=== PATIENT | female | born 1985 | race Hispanic/Latino ===

== ENCOUNTER 2018-10-18 16:41 | Emergency (ER) | payer OTHER, MEDICARE ==
[2018-10-18 17:24] LABS: BASOPHILS % (AUTO) 0.4 % (0.0-5.0); EOSINOPHILS % (AUTO) 0.4 % (0.0-8.0); HEMATOCRIT 40.7 % (36-48); LYMPHOCYTES % (AUTO) 14.6 % (21.0-51.0); MEAN CORPUSCULAR HEMOGLOBIN 31.6 pg (27.0-33.0); MEAN CORPUSCULAR HGB CONC 34.1 g/dL (32.0-36.0); MEAN CORPUSCULAR VOLUME 92.7 fL (79-99); MONOCYTES % (AUTO) 8.6 % (3.0-13.0); PLATELET COUNT (AUTO) 243 K/uL (130-400); RED BLOOD CELL COUNT(AUTO) 4.39 MIL/uL (4.00-5.50); RED CELL DISTRIBUTION WIDTH 13.5 % (11.0-15.5); WHITE BLOOD COUNT (AUTO) 12.7 K/uL (4.8-10.8)
[2018-10-18 17:38] LABS: CREATININE 0.8 mg/dL (0.5-1.5); POTASSIUM 3.9 mmol/L (3.5-5.1)
[2018-10-18 17:43] LABS: ALBUMIN 3.4 g/dL (3.5-5.0); BILIRUBIN,DIRECT 0.1 mg/dL (0.0-0.3); BILIRUBIN,TOTAL 0.2 mg/dL (0.2-1.0); TOTAL PROTEIN, SERUM 7.1 g/dL (6.0-8.3)
[2018-10-18 19:04] LABS: APPEARANCE,URINE Clear (CLEAR); BILIRUBIN,URINE Negative (NEGATIVE); COLOR,URINE Yellow (YELLOW); GLUCOSE, URINE (UA) Negative (NEGATIVE); KETONES,URINE Negative (NEGATIVE); LEUKOCYTE ESTERASE ,URINE Negative (NEGATIVE); NITRATE,URINE Negative (NEGATIVE); OCCULT BLOOD,URINE Negative (NEGATIVE); PH,URINE 7.5 (5.0-8.0); PROTEIN,URINE Negative (NEGATIVE); UROBILINOGEN,URINE 0.2 mg/dL (0.2-1.0)
[2018-10-18 19:05] LABS: HCG,QUAL RESULT NEGATIVE (NEGATIVE)
[2018-10-18] MEDS ORDERED: KETOROLAC TROMETHAMINE 30MG/ML ONE (19:11)
[2018-10-18] MEDS ORDERED: SODIUM CHLORIDE 0.9% 50 ML IV ONE (19:18)
[2018-10-18] MEDS ORDERED: CEFTRIAXONE SODIUM 1 GM ONE (19:18)
[2018-10-18] MEDS ORDERED: AZITHROMYCIN 250 MG TABLET PO ONE (19:18)
== END 2018-10-18 19:45 | disposition home or self-care (01) ==
LOC: EDH 16:41
DX: J18.9 Pneumonia, unspecified organism (principal); F41.9 Anxiety disorder, unspecified; Z87.891 Personal history of nicotine dependence; Z88.5 Allergy status to narcotic agent; Z88.8 Allergy status to other drugs, medicaments and biological substances
CPT/HCPCS: 36415; 74176; 80048; 80076; 81003; 81025; 85025; 96374; 96375; 99285; J0696; J1885

== ENCOUNTER 2022-08-28 17:15 | Emergency (ER) | payer OTHER, MEDICARE ==
[~2022-08-28] VITALS: Ht 160 cm; Wt 105.2 kg
[2022-08-28 17:59] LABS: HCG,QUALITATIVE URINE NEGATIVE (NEGATIVE)
[2022-08-28 18:04] LABS: APPEARANCE,URINE CLOUDY (CLEAR); BILIRUBIN,URINE NEGATIVE (NEGATIVE); COLOR,URINE YELLOW (YELLOW); GLUCOSE, URINE (UA) NEGATIVE (NEGATIVE); KETONES,URINE >=80 mg/dL (NEGATIVE); LEUKOCYTE ESTERASE ,URINE NEGATIVE Leu/uL (NEGATIVE); NITRATE,URINE NEGATIVE (NEGATIVE); OCCULT BLOOD,URINE NEGATIVE (NEGATIVE); PROTEIN,URINE 30 mg/dL (NEGATIVE); UROBILINOGEN,URINE 0.2 mg/dL (0.2-1.0)
[2022-08-28 18:33] LABS: MUCUS,URINE MANY LPF (None Seen); SQUAMOUS EPITHELIAL CELL,UR MOD /HPF (0-2); WBC,URINE 0-1 /HPF (0-1)
[2022-08-28] MEDS ORDERED: KETOROLAC 15MG/ML VIAL (15MG/ML) ONE (21:05)
[2022-08-28] MEDS ORDERED: METH4TAB3 PO (21:25)
[2022-08-28] MEDS ORDERED: SOLU-MEDROL 125MG VIAL IM ONE (21:30)
[2022-08-28] MEDS ORDERED: KETOROLAC 15MG/ML VIAL (15MG/ML) IM ONE (21:30)
[2022-08-28 22:24] VITALS: BP 132/66
== END 2022-08-28 22:27 | disposition home or self-care (01) ==
LOC: EDH 17:15
DX: S39.012A Strain of muscle, fascia and tendon of lower back, initial encounter (principal); S76.012A Strain of muscle, fascia and tendon of left hip, initial encounter; S00.12XA Contusion of left eyelid and periocular area, initial encounter; F31.9 Bipolar disorder, unspecified; F41.9 Anxiety disorder, unspecified; Z88.5 Allergy status to narcotic agent; Z88.8 Allergy status to other drugs, medicaments and biological substances; Y04.2XXA Assault by strike against or bumped into by another person, initial encounter; Y93.89 Activity, other specified; Y92.89 Other specified places as the place of occurrence of the external cause; Y99.8 Other external cause status
CPT/HCPCS: 99285; 70486; 81001; 81025; 72100; 72190; 96372 ×2; J2930; J1885

== ENCOUNTER 2024-05-10 20:07 | Emergency (ER) | payer OTHER, MEDICARE ==
[~2024-05-10] VITALS: Ht 160 cm; Wt 102.1 kg
[~2024-05-10 20:07] MED LIST: METH4TAB3 PO
--- NOTE | 2024-05-10 20:13 | NUR ---
UA CUP PROVIDED
[2024-05-10 20:55] LABS: BASOPHILS # (AUTO) 0.08 K/uL (0.00-0.20); BASOPHILS % (AUTO) 0.7 % (0.0-5.0); EOSINOPHILS # (AUTO) 0.01 K/uL (0.00-0.70); EOSINOPHILS % (AUTO) 0.1 % (0.0-8.0); HEMATOCRIT 40.6 % (36-48); IMMATURE GRANULOCYTE ABSOLUTE 0.03 K/uL (0-1); LYMPHOCYTES # (AUTO) 1.5 K/uL (1.0-4.8); LYMPHOCYTES % (AUTO) 13.5 % (21.0-51.0); MEAN CORPUSCULAR HEMOGLOBIN 31.1 pg (27.0-33.0); MEAN CORPUSCULAR VOLUME 94.2 fL (79-99); MONOCYTES # (AUTO) 1.1 K/uL (0.1-1.0); MONOCYTES % (AUTO) 9.5 % (3.0-13.0); NEUTROPHILS # (AUTO) 8.6 K/uL (1.8-7.7); NEUTROPHILS % (AUTO) 75.9 % (40.0-77.0); PLATELET COUNT (AUTO) 283 K/uL (130-400); RED BLOOD CELL COUNT(AUTO) 4.31 MIL/uL (4.00-5.50); RED CELL DISTRIBUTION WIDTH 13.4 % (11.0-15.5); WHITE BLOOD COUNT (AUTO) 11.4 K/uL (4.8-10.8)
[2024-05-10 20:57] LABS: APPEARANCE,URINE CLOUDY (CLEAR); BILIRUBIN,URINE NEGATIVE (NEGATIVE); COLOR,URINE LIGHT-ORANGE (YELLOW); GLUCOSE, URINE (UA) NEGATIVE (NEGATIVE); KETONES,URINE NEGATIVE (NEGATIVE); LEUKOCYTE ESTERASE ,URINE NEGATIVE Leu/uL (NEGATIVE); NITRATE,URINE NEGATIVE (NEGATIVE); OCCULT BLOOD,URINE LARGE (NEGATIVE); PH,URINE 6.5 (5.0-8.0); PROTEIN,URINE 30 mg/dL (NEGATIVE); UROBILINOGEN,URINE 0.2 mg/dL (0.2-1.0)
[2024-05-10 21:08] LABS: ADD UA MICROSCOPIC YES
[2024-05-10 21:09] LABS: MUCUS,URINE RARE LPF (None Seen); RBC,URINE TNTC /HPF (0-1); SQUAMOUS EPITHELIAL CELL,UR FEW /HPF (0-2)
[2024-05-10 21:29] LABS: CREATININE 0.8 mg/dL (0.5-1.0); POTASSIUM 3.4 mmol/L (3.5-5.1)
[2024-05-10 21:34] LABS: ALBUMIN 3.6 g/dL (3.5-5.0); BILIRUBIN,DIRECT 0.1 mg/dL (0.0-0.3); BILIRUBIN,TOTAL 0.3 mg/dL (0.2-1.0); TOTAL PROTEIN, SERUM 6.9 g/dL (6.0-8.3)
[2024-05-10] MEDS: morPHINE 2 MG SYG IM ONE (22:14)
--- NOTE | 2024-05-10 22:31 | ERN ---
General Chief Complaint: Multiple Complaints Stated Complaint: VOMITTING,NAUSEA,FEVER,CHILLS,ABDOMINAL PAIN Time Seen by MD: 20:10 Time Seen by Midlevel: 20:10 Source: patient History of Present Illness Initial Comments Patient is a 38-year-old female with a past medical history of type 2 diabetes and gastroparesis presenting to the emergency department with epigastric pain. Pain is rated seven on a 0-10 scale. Associated symptoms include nausea and vomiting. Patient reports five episodes of vomiting today. Subjective low- grade fevers at home of 101.4. She was seen at [facility] proximally three days ago and was discharged with a diagnosis of viral gastroenteritis. During my initial evaluation the patient states the only pain medication that works for is Dilaudid or morphine. Allergies: Coded Allergies: acetaminophen (Unverified Allergy, Unknown, 10/18/18) hydrocodone (Unverified Allergy, Unknown, 10/18/18) propoxyphene (Unverified Allergy, Unknown, 10/18/18) Home Meds Active Scripts Methylprednisolone (Medrol) 4 Mg Tab.ds.pk, 4 MG PO AD for 6 Days, #1 PACK Prov:NHAN JAFFE MD 08/28/22 Past Medical History Past Medical History: Anxiety, Bipolar, Depression, Diverticulosis, GERD, Seizure Medical History Other: PTSD Past Surgical History: None Social History Social History: ETOH, Lives with family Female( History) LMP: May 03, 2024 ROS Dictation CONSTITUTIONAL: Negative except for HPI HEAD/FACE: Negative except for HPI EENT: Negative except for HPI RESPIRATORY: Negative except for HPI GASTROINTESTINAL/ABDOMINAL: Negative except for HPI GENITOURINARY: Negative except for HPI MUSCULOSKELETAL: Negative except for HPI INTEGUMENTARY: Negative except for HPI NEUROLOGICAL/PSYCH: Negative except for HPI HEMATOLOGIC/LYMPHATIC: Negative except for HPI All Systems Negative, Except as noted above. 13 point review of systems assessed and all negative except for above. Physical Exam Physical Exam Dictation Vital Signs reviewed General Appearance: Alert, oriented x 3, no acute distress, well developed, nourished. Head and Face: non-traumatic. Eyes: PERRL, pink conjunctivas, eyelid no trauma, anterior chamber with arcus senilis. Ears: Pinnas intact and no signs of trauma or erythema ear canals clear and no discharge TM no erythema Nose: No discharge, no bleeding. Oropharynx: Mouth normal, tongue pink, pharynx clear,no erythema, tonsils no exudates, no abscesses noted, mucous membrane moist Neck: Supple, non-tender, no thyromegaly, no masses, no JVD, no bruits Breast:Deferred Chest:No tenderness, no crepitus, no paradoxical movement, no retractions Lungs:Clear, well-ventilated, symmetric, no rales, no wheezing, no rhonchi, no stridor, good breath sounds bilaterally Heart: Regular rate, regular rhythm, no murmur, no gallops Vascular: no peripheral edema, Abdomen: Soft, positive bowel sounds, nondistended, no guarding, nontender, no rebound, no masses no hepatomegaly, no splenomegaly, no Forte's sign, no hernias. Rectal: Deferred Genital: Deferred Neurological: Normal speech, motor function intact, sensory function intact Musculoskeletal: Neck nontender, full range of motion, back nontender, full range of motion, Extremities: nontender, full range of motion Skin: Color pink, dry, no turgor, no rash, no lacerations, no abrasions, no contusions. Lymphatic: Deferred Results Laboratory and Microbiology Lab and Micro Result Laboratory Tests Test 05/10/24 20:19 White Blood Count 11.4 K/uL (4.8-10.8) H Red Blood Count 4.31 MIL/uL (4.00-5.50) Hemoglobin 13.4 g/dL (12.0-16.0) Hematocrit 40.6 % (36-48) Mean Corpuscular Volume 94.2 fL (79-99) Mean Corpuscular Hemoglobin 31.1 pg (27.0-33.0) Mean Corpuscular Hemoglobin Concent 33.0 g/dL (32.0-36.0) Red Cell Distribution Width 13.4 % (11.0-15.5) Platelet Count 283 K/uL (130-400) Mean Platelet Volume 9.2 fL (7.5-10.5) Immature Granulocyte % (Auto) 0.3 % (0-1) Neutrophils (%) (Auto) 75.9 % (40.0-77.0) Lymphocytes (%) (Auto) 13.5 % (21.0-51.0) L Monocytes (%) (Auto) 9.5 % (3.0-13.0) Eosinophils (%) (Auto) 0.1 % (0.0-8.0) Basophils (%) (Auto) 0.7 % (0.0-5.0) Neutrophils # (Auto) 8.6 K/uL (1.8-7.7) H Lymphocytes # (Auto) 1.5 K/uL (1.0-4.8) Monocytes # (Auto) 1.1 K/uL (0.1-1.0) H Eosinophils # (Auto) 0.01 K/uL (0.00-0.70) Basophils # (Auto) 0.08 K/uL (0.00-0.20) Absolute Immature Granulocyte (auto 0.03 K/uL (0-1) Nucleated Red Blood Cells 0.0 % (0.0-0.19) Urine Color LIGHT-ORANGE (YELLOW) Urine Appearance CLOUDY (CLEAR) H Urine pH 6.5 (5.0-8.0) Urine Specific [place] 1.027 (1.001-1.031) Urine Protein 30 mg/dL (NEGATIVE) H Urine Glucose (UA) NEGATIVE mg/dL (NEGATIVE) Urine Ketones NEGATIVE mg/dL (NEGATIVE) Urine Occult Blood LARGE (NEGATIVE) H Urine Nitrate NEGATIVE (NEGATIVE) Urine Bilirubin NEGATIVE mg/dL (NEGATIVE) Urine Urobilinogen 0.2 mg/dL (0.2-1.0) Urine Leukocyte Esterase NEGATIVE Sin/uL Urine RBC TNTC /HPF (0-1) H Urine WBC None /HPF (0-1) Urine Squamous Epithelial Cells FEW /HPF (0-2) Urine Bacteria None /HPF (None Seen) Sodium Level 141 mmol/L (136-145) Potassium Level 3.4 mmol/L (3.5-5.1) L Chloride Level 100 mmol/L (101-111) L Carbon Dioxide Level 31 mmol/L (21-32) Blood Urea Nitrogen 9 mg/dL (7-18) Creatinine 0.8 mg/dL (0.5-1.0) Glomerular Filtration Rate Calc 97 mL/min (>90) Random Glucose 100 mg/dL (70-105) Total Calcium 8.9 mg/dL (8.5-10.1) Total Bilirubin 0.3 mg/dL (0.2-1.0) Direct Bilirubin 0.1 mg/dL (0.0-0.3) Aspartate Amino Transf (AST/SGOT) 19 U/L (10-37) Alanine Aminotransferase (ALT/SGPT) 35 U/L (12-78) Alkaline Phosphatase 49 U/L (50-136) L Total Protein 6.9 g/dL (6.0-8.3) Albumin 3.6 g/dL (3.5-5.0) Lipase 28 U/L (16-77) Serum Test, Qualitative NEGATIVE (NEGATIVE) Labs Reviewed?: Yes MDM MDM: Differential diagnosis: Drug-seeking behavior, pancreatitis, acute cholecystitis, gastroparesis There are no social concerns with this patient. Prescription drug management Prescriptions will include: None Medical management and examination interpretation discussions were had by me with other qualified healthcare professionals as indicated for the patient's care. ED Course Orders Procedure Category Date Status Time Urinalysis Profile LAB 05/10/24 Complete 20:14 Testing, LAB 05/10/24 Complete Serum Hcg 20:14 Cbc With Differential LAB 05/10/24 Complete 20:14 Basic Metabolic Panel LAB 05/10/24 Complete 20:14 Lipase LAB 05/10/24 Complete 20:14 Hepatic Function Panel LAB 05/10/24 Complete 20:14 Morphine 2mg Syg PHA 05/10/24 Complete (Morphine 2mg Syg) 22:00 Current Medications Medications (Trade) Dose Ordered Sig/Meredith Route PRN Reason Start Time Stop Time Status Last Admin Dose Admin Morphine Sulfate (morPHINE 2MG SYG) 2 mg ONCE ONCE IM 05/10/24 22:00 05/10/24 22:01 DC 05/10/24 22:14 Vital Signs Date Time Temp Pulse Resp B/P (MAP) Pulse Ox O2 Delivery O2 Flow Rate FiO2 05/10/24 22:35 97.9 74 16 127/68 100 Room Air* 0 21 05/10/24 20:07 98.1 92 20 134/62 98 Room Air DX & DISP Disposition: Discharge Departure Impression: Primary Impression: Epigastric pain Additional Impression: History of diabetic gastroparesis Condition: Stable Additional Instructions: Your blood work today is unremarkable. You were given morphine in the emergency department. You will need to follow up with your primary care doctor for further evaluation. Return to the ER for any new or worsening symptoms Referrals: ROSSI GRACIA MD (PCP) Time of Disposition: 22:31 I have reviewed the case, and I agree with, Diagnosis and Plan I performed the substantive portion of the visit. I have reviewed and personally made and approve the management plan that is documented in the note by myself or the KATIUSKA. I acknowledge for responsibility for the patient's management plan. MARTINE JEREZ May 10, 2024 22:31
[2024-05-10 22:35] VITALS: BP 127/68; PULSE 74; RESP 16; TEMP 97.9; O2SAT 100
== END 2024-05-10 22:36 | disposition home or self-care (01) ==
LOC: EDH 20:07
DX: R10.13 Epigastric pain (principal); E11.9 Type 2 diabetes mellitus without complications; F31.9 Bipolar disorder, unspecified; K21.9 Gastro-esophageal reflux disease without esophagitis; Z88.5 Allergy status to narcotic agent
CPT/HCPCS: 99283; 80076; 80048; 84703; 83690; 85025; 81001; 36415; 96372; J2270

== ENCOUNTER 2025-03-29 20:29 | Emergency (ER) | payer OTHER, MEDICARE ==
[~2025-03-29] VITALS: Ht 160 cm; Wt 75.3 kg
--- NOTE | 2025-03-29 20:38 | ERN ---
ED Note History of Present Illness Stated Complaint: FLU SYMPTOMS Chief Complaint: Flu Symptoms Time Seen by MD: 20:31 Dictation: PATIENT IS A 39-YEAR-OLD FEMALE HERE WITH HER MOTHER WITH THE SAME COMPLAINTS OF FLU-LIKE SYMPTOMS TO INCLUDE COUGH WITH WHEEZING, SORE THROAT WITH PAINFUL SWALLOWING BODY ACHES AND FRONTAL HEADACHE WITH RHINITIS. SHE STATES SHE HAS A HISTORY OF ASTHMA HOWEVER RAN OUT OF HER MEDICATIONS A WHILE BACK IN HIS NOT BEEN ABLE TO SEE HER DOCTOR AND DOES NOT HAVE AN APPOINTMENT WITH HIM UNTIL THE March. ON-CALL Allergies: Coded Allergies: acetaminophen (Unverified Allergy, Unknown, 10/18/18) hydrocodone (Unverified Allergy, Unknown, 10/18/18) propoxyphene (Unverified Allergy, Unknown, 10/18/18) Home Meds Active Scripts Methylprednisolone (Medrol) 4 Mg Tab.ds.pk, 4 MG PO AD for 6 Days, #1 PACK Prov:NHAN JAFFE MD 08/28/22 Past Medical History Past Medical History: Anxiety, Bipolar, Depression, Diverticulosis, GERD, Seizure Additional Past Medical Hx: PTSD Surgical History: None Social History: ETOH, Lives with family RN Note Reviewed/Agreed w/PFSH: Yes Review of System Dictation CONSTITUTIONAL: NEGATIVE EXCEPT FOR HPI FEVER CHILLS HEAD/FACE: NEGATIVE EXCEPT FOR HPI EENT: NEGATIVE EXCEPT FOR HPI CLEAR RHINITIS WITH SORE RESPIRATORY: NEGATIVE EXCEPT FOR HPI THROA COUGH WITH WHEEZING GASTROINTESTINAL/ABDOMINAL: NEGATIVE EXCEPT FOR HPI GENITOURINARY: NEGATIVE EXCEPT FOR HPI MUSCULOSKELETAL: NEGATIVE EXCEPT FOR HPI INTEGUMENTARY: NEGATIVE EXCEPT FOR HPI NEUROLOGICAL/PSYCH: NEGATIVE EXCEPT FOR HPI HEMATOLOGIC/LYMPHATIC: NEGATIVE EXCEPT FOR HPI ALL SYSTEMS NEGATIVE, EXCEPT NOTED ABOVE. 13 POINT REVIEW OF SYSTEMS ASSESSED AND ALL NEGATIVE EXCEPT FOR ABOVE. Initial Vital Sign VS Vital Signs Date Time Temp Pulse Resp B/P (MAP) Pulse Ox O2 Delivery O2 Flow Rate FiO2 03/29/25 20:34 99.3 100 18 116/71 98 Room Air 0 03/29/25 22:18 21 Physical Exam Dictation VITAL SIGNS REVIEWED GENERAL APPEARANCE: ALERT, ORIENTED X 3, MILD ACUTE DISTRESS, WELL DEVELOPED, NOURISHED. HEAD AND FACE: NON-TRAUMATIC. EYES: PERRL, PINK CONJUNCTIVAS, EYELID NO TRAUMA, ANTERIOR CHAMBER WITH ARCUS SENILIS. EARS: PINNAS INTACT AND NO SIGNS OF TRAUMA OR ERYTHEMA EAR CANALS CLEAR AND NO DISCHARGE TM NO ERYTHEMA NOSE: CLEAR DISCHARGE, NO BLEEDING. OROPHARYNX: MOUTH NORMAL, TONGUE PINK, PHARYNX CLEAR, MODERATE PHARYNGEAL ERYTHEMA, TONSILS NO EXUDATES, NO ABSCESSES NOTED, MUCOUS MEMBRANE MOIST UVULA MIDLINE, VOICE IS CLEAR NECK: SUPPLE, NON-TENDER, NO THYROMEGALY, NO MASSES, NO JVD, NO BRUITS BREAST:DEFERRED CHEST:NO TENDERNESS, NO CREPITUS, NO PARADOXICAL MOVEMENT, NO RETRACTIONS LUNGS: BILATERAL EXPIRATORY WHEEZING MILD TO HER UPPER LOBES. TACHYPNEA OR RETRACTIONS. HEART: REGULAR RATE, REGULAR RHYTHM, NO MURMUR, NO GALLOPS VASCULAR: NO PERIPHERAL EDEMA, ABDOMEN: SOFT, POSITIVE BOWEL SOUNDS, NONDISTENDED, NO GUARDING, NONTENDER, NO REBOUND, NO MASSES NO HEPATOMEGALY, NO SPLENOMEGALY, NO TO'S SIGN, NO HERNIAS. RECTAL: DEFERRED GENITAL: DEFERRED NEUROLOGICAL: NORMAL SPEECH, MOTOR FUNCTION INTACT, SENSORY FUNCTION INTACT MUSCULOSKELETAL: NECK NONTENDER, FULL RANGE OF MOTION, BACK NONTENDER, FULL RANGE OF MOTION, EXTREMITIES: NONTENDER, FULL RANGE OF MOTION SKIN: COLOR PINK, DRY, NO TURGOR, NO RASH, NO LACERATIONS, NO ABRASIONS, NO CONTUSIONS. LYMPHATIC: DEFERRED Results (Laboratory/Radiology) Laboratory/Radiology Laboratory Tests Test 03/29/25 20:32 Influenza Type A Antigen Positive For Type A Influenza Type B Antigen Negative For Type B SARS-CoV-2 Antigen (Rapid) PRESUMPTIVE NEGATIVE Group A Streptococcus Rapid negative (NEGATIVE) Labs Reviewed?: Yes ED Course ED Course Orders Procedure Category Date Status Time Covid19 (Sars Antigen LAB 03/29/25 Complete Rapid) 20:32 Influenza Type A & B, LAB 03/29/25 Complete Rapid 20:32 Rapid (Group A Strep) LAB 03/29/25 Complete 20:32 Acetaminophen 500mg PHA 03/29/25 Complete Tab (Tylenol 500mg T 21:00 Dexamethasone 4mg/Ml PHA 03/29/25 Complete 1ml Vial (Dexametha 21:00 Ibuprofen 800 Mg Tab PHA 03/29/25 Complete (Motrin) 21:00 Albuterol 0.083% PHA 03/29/25 Complete 2.5mg/3ml (Proventil 21:00 Oseltamivir Phosphate PHA 03/29/25 In Process (Tamiflu) 23:00 Amox/Clav 875/125mg PHA 03/29/25 In Process Tab (Augmentin 875-1 23:00 Current Medications Medications (Trade) Dose Ordered Sig/Meredith Route PRN Reason Start Time Stop Time Status Last Admin Dose Admin Acetaminophen (TYLenol 500MG TAB) 1,000 mg ONCE ONCE PO 03/29/25 21:00 03/29/25 20:47 DC Albuterol Sulfate (Proventil 0.083% 2.5mg/3ml) 2.5MG ONCE ONCE IH 03/29/25 21:00 03/29/25 21:01 DC 03/29/25 21:34 Amoxicillin/ Clavulanate Potassium (Augmentin 875-125 Tablet) 1 each ONCE ONCE PO 03/29/25 23:00 03/29/25 23:01 Dexamethasone Sodium Phosphate (dexaMETHasone 4MG/ML 1ML VIAL) 8 mg ONCE ONCE IM 03/29/25 21:00 03/29/25 21:01 DC 03/29/25 21:02 Ibuprofen (moTRIN) 800 mg ONCE ONCE PO 03/29/25 21:00 03/29/25 21:01 DC 03/29/25 21:01 Oseltamivir Phosphate (Tamiflu) 75 mg ONCE ONCE PO 03/29/25 23:00 03/29/25 23:01 Vital Signs Date Time Temp Pulse Resp B/P (MAP) Pulse Ox O2 Delivery O2 Flow Rate FiO2 03/29/25 22:18 98.6 92 18 114/68 98 Room Air* 0 21 03/29/25 21:35 87 20 03/29/25 20:34 99.3 100 18 116/71 98 Room Air 0 2250/bilateral breath sounds are clear voice is clear. Saturations 98 99% on room air. Patient is aware she will be given Tamiflu And Augmentin for Influenza a and pharyngitis Medical Decision Making MDM Medical decision-making based on swabs for flu COVID and strep due to symptoms. Additionally patient was given some Decadron and albuterol for bronchospasm and asthma flare Bilateral breath sounds clear after treatment patient markedly improved Discharged home with Tamiflu for for influenza a Augmentin 875 b.i.d. for seven days for acute pharyngitis unspecified Medrol Dosepak She states she has a albuterol inhaler at home. Told keep her primary care doctor appointment on the . DX & DISP Disposition: Discharge Departure Impression: Primary Impression: Influenza A Additional Impressions: Acute pharyngitis, unspecified, Asthma exacerbation, Fever Condition: Stable Scripts Oseltamivir Phosphate (Tamiflu) 75 Mg Cap 75 MG PO BID, #5 10 Prov: MELVA KHANNA 03/29/25 Methylprednisolone (Medrol) 4 Mg Tab.ds.pk 1 TAB PO AD for 6 Days, #21 TAB 0 Refills 6 on day 1 then reduce by one tablet daily until gone Prov: MELVA KHANNA 03/29/25 Amoxicillin/Potassium Clav (Amox Tr-K Clv 875-125 mg Tab) 875 Mg-125 Mg Tablet 1 EACH PO BID for 7 Days, #14 TAB 0 Refills Prov: MELVA KHANNA 03/29/25 Albuterol Sulfate (Ventolin Hfa/Proventil Hfa/Proair Hfa) 90 Mcg Puff 2 PUFF IH Q4H for WHEEZING, #1 INHALER 0 Refills Prov: MELVA KHANNA 03/29/25 Additional Instructions: Follow-up with primary care provider in 1 to 2 days. Take medications as directed here in the emergency room. Okay to continue home medications unless otherwise discussed during your visit in the emergency room today. Return to your nearest emergency room if symptoms worsen or if there is no improvement. Call 911 if you need immediate assistance. Take Tylenol or Motrin [id number] as needed and if no contraindications are present. Increase oral hydration. A wound culture or urine culture was ordered here in the emergency room department please follow-up with primary care provider and advise them to get repeat ports from our facility. If you had any Rc wrap/splints that were applied here, please do not remove them until you see your primary care or specialty. Take Augmentin as directed twice a day until gone. Take Tamiflu twice a day as directed for the next five days until gone. Use your albuterol inhaler every 4 hours while awake for the next two days. Take Medrol Dosepak as directed until gone. Increase your water intake. Keep your appointment with Dr. Vipul Gracia on 04/02/2025 Referrals: VIPUL GRACIA MD (PCP) Time of Disposition: 22:50 I have reviewed the case, and I agree with, Diagnosis and Plan MELVA KHANNA Mar 29, 2025 20:38
[2025-03-29] MEDS: ALBUTEROL 0.083% 2.5 MG/3 ML INH IH ONE (21:34)
[2025-03-29 21:35] VITALS: PULSE 87; RESP 20
[2025-03-29 21:38] LABS: RAPID GROUP A STREP negative (NEGATIVE)
[2025-03-29 22:01] LABS: COVID19 (SARS ANTIGEN RAPID) PRESUMPTIVE NEGATIVE (NEGATIVE); INFLUENZA TYPE B Negative For Type B (NEGATIVE)
[2025-03-29 22:05] LABS: INFLUENZA TYPE A Positive For Type A (NEGATIVE)
[2025-03-29] MEDS: OSELTAMIVIR PHOSPHATE 75 MG CAP PO ONE (23:12)
[2025-03-29] MEDS: AMOX/CLAV 875/125MG TAB PO ONE (23:12)
[2025-03-29 23:20] VITALS: BP 116/58; PULSE 88; RESP 20; TEMP 98.4; O2SAT 99
== END 2025-03-29 23:21 | disposition home or self-care (01) ==
LOC: EDH 20:29
DX: J10.1 Influenza due to other identified influenza virus with other respiratory manifestations (principal); J45.901 Unspecified asthma with (acute) exacerbation; F31.9 Bipolar disorder, unspecified; Z20.822 Contact with and (suspected) exposure to COVID-19; Z88.5 Allergy status to narcotic agent
CPT/HCPCS: 99284; 87426; 87880; 87804 ×2; 96372; 94640; J1100